=== PATIENT | female | born 1990 | race Two or more races ===

== ENCOUNTER 2017-11-18 11:57 | Emergency (ER) | payer SELFPAY ==
[2017-11-18 12:10] VITALS: BP 140/83; PULSE 83; TEMP 98.6; BMI 25.8
[2017-11-18] MEDS ORDERED: IBUPROFEN 600 MG TABLET (FP) PO ONE ×2 (13:12→13:26)
[2017-11-18] MEDS ORDERED: ALBUTEROL SO4 0.083% IH SOL 2.5 MG/3 ML VIAL.NEB. NEB ONE ×2 (13:13→13:29)
--- NOTE | 2017-11-18 13:13 | PDOC ---
History of Present Illness - General Chief Complaint: Cold Symptoms Stated Complaint: HEADACHE Time Seen by Provider: 11/18/17 12:58 History Source: Patient - History of Present Illness Initial Comments: 11/18/17 13:46 27 year old female c/o URI symptoms, bodyaches, cough, chest congestion for 3 days. Patient reports no improvement in symptoms patient has been taking Tylenol and Advil when necessary. Patient reports no flu shot this year. A past medical history. Past History - Travel Traveled outside of the country in the last 30 days: Yes - Past Medical History Allergies/Adverse Reactions: Allergies Allergy/AdvReac Type Severity Reaction Status Date / Time No Known Allergies Allergy Verified 11/18/17 12:07 Home Medications: Ambulatory Orders Amoxicillin/Potassium Clav [Augmentin 875-125 Tablet] 1 each PO BID #20 tablet 11/18/17 COPD: No - Suicide/Smoking/Psychosocial Hx Smoking History: Never smoked Have you smoked in the past 12 months: No Information on smoking cessation initiated: No Hx Alcohol Use: No Drug/Substance Use Hx: No Substance Use Type: None Review of Systems - Review of Systems Able to Perform ROS?: Yes Is the patient limited Nigerien proficient: No Constitutional: Yes: Fever. No: Symptoms Reported, See HPI, Chills, Diaphoresis , Loss of Appetite, Malaise, Night Sweats, Weakness, Weight Stable, Unintentional Wgt. Loss, Unexplained wgt Loss, Other HEENTM: Yes: Throat Pain. No: Symptoms Reported, See HPI, Eye Pain, Blurred Vision, Tearing, Recent change in vision, Double Vision, Cataracts, Ear Pain, Ocular Prothesis, Ear Discharge, Nose Pain, Nose Congestion, Tinnitus, Nose Bleeding, Hearing Loss, Throat Swelling, Mouth Pain, Dental Problems, Difficulty Swallowing, Mouth Swelling, Other Respiratory: Yes: Cough. No: Symptoms reported, See HPI, Orthopnea, Shortness of Breath, SOB with Exertion, SOB at Rest, Stridor, Wheezing, Productive cough, Hemoptysis, Other Cardiac (ROS): No: Symptoms Reported, See HPI, Chest Pain, Edema, Irregular Heart Rate, Lightheadedness, Palpitations, Syncope, Chest Tightness, Other *Physical Exam - Vital Signs Last Vital Signs Temp Pulse Resp BP Pulse Ox 98.6 F 83 18 140/83 100 11/18/17 12:08 11/18/17 12:08 12/19/17 12:08 11/18/17 12:08 11/18/17 12:08 - Physical Exam General Appearance: Yes: Appropriately Dressed HEENT: positive: Tonsillar Erythema (and edema. no unilateral swelling), Other ( frontal sinus tenderness) Respiratory/Chest: positive: Rhonchi. negative: Chest Tender, Lungs Clear, Normal Breath Sounds, Respiratory Distress, Accessory Muscle Use, Labored Respiration, Rapid RR, Decreased Breath Sounds, Paradoxal Breathing, Crackles, Rales, Stridor, Wheezing, Hyperresonant, Dullness, Plerual Rub, Other Cardiovascular: positive: Regular Rhythm, Regular Rate Gastrointestinal/Abdominal: positive: Normal Bowel Sounds, Soft Musculoskeletal: positive: Normal Inspection Extremity: positive: Normal Capillary Refill, Normal Inspection, Normal Range of Motion Integumentary: positive: Normal Color, Dry, Warm Neurologic: positive: Fully Oriented, Alert, Normal Mood/Affect Progress Note - Progress Note Progress Note: A: URI P: albuterol tylenol *DC/Admit/Observation/Transfer Diagnosis at time of Disposition: URI (upper respiratory infection) Qualifiers: URI type: unspecified URI Qualified Code(s): J06.9 - Acute upper respiratory infection, unspecified Sinusitis Qualifiers: Sinusitis location: frontal Chronicity: acute Recurrence: non-recurrent Qualified Code(s): J01.10 - Acute frontal sinusitis, unspecified - Discharge Dispostion Disposition: HOME - Prescriptions Prescriptions: Amoxicillin/Potassium Clav [Augmentin 875-125 Tablet] 1 each PO BID #20 tablet - Referrals Referrals: Ana Estrella [Primary Care Provider] - - Patient Instructions Printed Discharge Instructions: DI for Common Cold Additional Instructions: drink plenty of fluids. gargle with warm salty water. take tylenol or ibuprofen every 6 hours as needed for pain take augmentin as prescribed. follow up with your doctor as soon as possible. - Post Discharge Activity
== END 2017-11-18 14:56 | disposition home or self-care (01) ==
LOC: JERFT 11:57
PROC: 3E0F7GC Introduction of Other Therapeutic Substance into Respiratory Tract, Via Natural or Artificial Opening (ICD-10-PCS; principal; 2017-11-18)
DX: J06.9 Acute upper respiratory infection, unspecified (principal); J01.10 Acute frontal sinusitis, unspecified
CPT/HCPCS: 87070; 87430; 99281-25

== ENCOUNTER 2021-01-25 14:41 | Emergency (ER) | payer OTHER ==
[2021-01-25 15:33] VITALS: BP 165/67; PULSE 98; TEMP 97.6; BMI 87.1
[2021-01-25] MEDS ORDERED: ACETAMINOPHEN 500 MG TABLET (FP) PO ONE (16:30)
[2021-01-25] MEDS ORDERED: ACETAMINOPHEN 325 MG TABLET (FP) ONE (16:42)
[2021-01-25] MEDS ORDERED: ACETAMINOPHEN 500 MG TABLET (FP) ONE (17:12)
[2021-01-25] MEDS ORDERED: LIDOCAINE 5% TOPICAL PATCH TP ONE (17:26)
[2021-01-25] MEDS ORDERED: LIDOCAINE 5% TOPICAL PATCH ONE (17:28)
[2021-01-25] MEDS ORDERED: LIDOCAINE PATCH REMOVAL MC ONE (22:00)
== END 2021-01-25 17:45 | disposition home or self-care (01) ==
LOC: JER 14:41 → JERFT 14:41
DX: M54.5 Low back pain (principal)
CPT/HCPCS: 99283-25

== ENCOUNTER 2021-08-05 09:00 | Inpatient (IN) | payer OTHER ==
[2021-08-05 10:22] VITALS: BMI 45.6
[2021-08-05] MEDS ORDERED: morphine SULFATE/PF 0.5 MG/ML (2cc Syringe - QUVA) ONE (12:09)
[2021-08-05] MEDS ORDERED: CITRIC ACID/SODIUM CITRATE 30 ML UNIT-DOSE CUP PO ONE (12:09)
[2021-08-05] MEDS ORDERED: ELECTROLYTE-148 SOLN 1,000 ML IV SCH (12:15)
[2021-08-05 14:00] LABS: CORD BASE EXCESS -2.8 mmol/L (0-2); CORD HCO3 24.1 mmHg (20-29); CORD PCO2 49.7 mmHg (30-78); CORD pH 7.304 (7.14-7.44)
[2021-08-05] MEDS ORDERED: OXYTOCIN 20 UNITS in 0.9% NS 20 UNIT/1,000 ML INFUS.BAG IV ONE (14:54)
[2021-08-05] MEDS ORDERED: oxyCODONE HCL 5 MG TABLET PO PRN (15:11)
[2021-08-05] MEDS: OXYTOCIN 20 UNITS in 0.9% NS 20 UNIT/1,000 ML INFUS.BAG IV SCH (16:45)
[2021-08-06] MEDS: SIMETHICONE 80 MG TAB.CHEW (FP) PO PRN ×2 (06:03→19:47)
[2021-08-06] MEDS: IBUPROFEN 600 MG TABLET (FP) PO PRN (06:04)
[2021-08-06 09:07] LABS: BASO % 0.1 % (0-2.0); EOS % 0.4 % (0-4.5); HEMATOCRIT 36.3 % (32.4-45.2); HEMOGLOBIN 11.8 GM/dL (10.7-15.3); LYMPH % 10.7 % (8-40); MCH 27.7 pg (25.7-33.7); MCHC 32.6 g/dl (32.0-36.0); MEAN CELL VOLUME 85.1 fl (80-96); MEAN PLT VOLUME 8.9 fl (7.5-11.1); MONO % 6.3 % (3.8-10.2); NEUT % 82.5 % (42.8-82.8); PLATELET COUNT 180 10^3/uL (134-434); RBC 4.27 M/mm3 (3.60-5.2); RDW 15.8 % (11.6-15.6); WHITE BLOOD COUNT 11.7 K/mm3 (4.0-10.0)
[2021-08-06] MEDS ORDERED: BISACODYL 10 MG SUPP.RECT RC PRN (15:11)
[2021-08-06] MEDS: OXYTOCIN 20 UNITS in 0.9% NS 20 UNIT/1,000 ML INFUS.BAG IV SCH (16:31)
[2021-08-07 11:37] LABS: POC NITRAZINE POS
[2021-08-07] MEDS: SIMETHICONE 80 MG TAB.CHEW (FP) PO PRN (17:14)
[2021-08-07] MEDS: IBUPROFEN 600 MG TABLET (FP) PO PRN (17:14)
[2021-08-08] MEDS: IBUPROFEN 600 MG TABLET (FP) PO PRN ×2 (00:24→09:30)
[2021-08-08] MEDS: SIMETHICONE 80 MG TAB.CHEW (FP) PO PRN (00:25)
[2021-08-08 10:26] VITALS: BP 128/69; PULSE 88; TEMP 98.9
[2021-08-08 11:32] LABS: BASO % 0.4 % (0-2.0); EOS % 1.3 % (0-4.5); HEMATOCRIT 34.5 % (32.4-45.2); HEMOGLOBIN 11.4 GM/dL (10.7-15.3); LYMPH % 12.2 % (8-40); MCH 27.7 pg (25.7-33.7); MEAN CELL VOLUME 83.9 fl (80-96); MEAN PLT VOLUME 8.6 fl (7.5-11.1); NEUT % 80.1 % (42.8-82.8); PLATELET COUNT 207 10^3/uL (134-434); RBC 4.11 M/mm3 (3.60-5.2); RDW 15.7 % (11.6-15.6); WHITE BLOOD COUNT 11.5 K/mm3 (4.0-10.0)
== END 2021-08-08 12:55 | disposition home or self-care (01) | DRG 540 ==
LOC: JLDR 09:00 → J3W 16:45
PROVIDERS: ADMIT Obstetrics & Gynecology Maternal & Fetal Medicine; ATTEND Obstetrics & Gynecology Maternal & Fetal Medicine
PROC: 10D00Z1 Extraction of Products of Conception, Low, Open Approach (ICD-10-PCS; principal; 2021-08-05)
DX: O32.2XX0 Maternal care for transverse and oblique lie, not applicable or unspecified (principal); O99.214 Obesity complicating childbirth; E66.9 Obesity, unspecified; Z3A.38 38 weeks gestation of pregnancy; Z37.0 Single live birth
CPT/HCPCS: 36415; 36600; 80053; 82803; 83986-QW; 85025; 86850; 86900; 86901; C9803; U0003; U0005

== ENCOUNTER 2022-07-29 10:41 | Inpatient (IN) | payer OTHER ==
[2022-07-29] MEDS ORDERED: ONDANSETRON 4 MG/2 ML VIAL IVPUSH ONE ×2 (12:23→19:48)
[2022-07-29] MEDS ORDERED: SODIUM CHLORIDE 0.9% 500 ML INFUS.BAG IV ONE ×2 (12:23)
[2022-07-29] MEDS ORDERED: ONDANSETRON 4 MG/2 ML VIAL ONE ×2 (12:25→20:25)
[2022-07-29 12:54] LABS: BASO % 0.6 % (0-2.0); EOS % 0.7 % (0-4.5); HEMATOCRIT 50.4 % (32.4-45.2); HEMOGLOBIN 16.9 GM/dL (10.7-15.3); MCHC 33.5 g/dl (32.0-36.0); MEAN CELL VOLUME 83.6 fl (80-96); MEAN PLT VOLUME 9.8 fl (7.5-11.1); MONO % 9.1 % (3.8-10.2); NEUT % 75.6 % (42.8-82.8); PLATELET COUNT 228 10^3/uL (134-434); RBC 6.03 M/mm3 (3.60-5.2); RDW 13.1 % (11.6-15.6); WHITE BLOOD COUNT 10.7 K/mm3 (4.0-10.0)
[2022-07-29 13:21] LABS: CHLORIDE 81 mmol/L (98-107); SODIUM 132 mmol/L (136-145)
[2022-07-29 13:25] LABS: BLOOD UREA NITROGEN 35.6 mg/dL (7-18); CALCIUM 10.5 mg/dL (8.5-10.1); CO2 38 mmol/L (21-32); GLUCOSE,RANDOM 108 mg/dL (74-106)
[2022-07-29 13:26] LABS: ALBUMIN 5.1 g/dl (3.4-5.0)
[2022-07-29 13:28] LABS: CREATININE 1.4 mg/dL (0.55-1.3); SGOT/AST 231 U/L (15-37); SGPT/ALT 620 U/L (13-61)
[2022-07-29 13:29] LABS: BILIRUBIN,TOTAL 2.3 mg/dL (0.2-1)
[2022-07-29 13:30] LABS: ALK PHOS 125 U/L (45-117)
[2022-07-29 13:32] LABS: ANION GAP 14 MMOL/L (8-16)
[2022-07-29] MEDS ORDERED: POTASSIUM CHLORIDE 20 MEQ PREMIX IVPB 100 ML IVPB ONE (14:04)
[2022-07-29] MEDS ORDERED: POTASSIUM CHLORIDE TABS 20 MEQ TABLET.ER (FP) PO ONE ×2 (14:06→14:26)
[2022-07-29] MEDS ORDERED: LACTATED RINGERS SOLUTION 1,000 ML/1,000 ML INFUS.BAG IV STA (14:12)
[2022-07-29] MEDS ORDERED: KCL 10 MEQ IVPB 10 MEQ/100 ML INFUS.BAG IVPB ONE ×2 (14:26→15:12)
[2022-07-29] MEDS: KCL 10 MEQ IVPB 10 MEQ/100 ML INFUS.BAG IVPB SCH ×2 (14:39→15:59)
[2022-07-29 15:51] LABS: EPI CELLS 26 /uL (0-25.1); HYALINE CASTS 6 /uL (0-3.1); PH,URINE 6.5 (5.0-8.0); URINE APPEARANCE CLOUDY; URINE BACTERIA 664 /uL (0-1359); URINE BILIRUBIN 2+ (NEGATIVE); URINE COLOR ORANGE; URINE GLUCOSE (UA) NEGATIVE (NEGATIVE); URINE KETONE 4+ (NEGATIVE); URINE LEUK ESTERASE 2+ (NEGATIVE); URINE NITRITE NEGATIVE (NEGATIVE); URINE PROTEIN 2+ (NEGATIVE); URINE RBC 4866 /uL (0-23.9); URINE WBC 295 /uL (0-25.8)
[2022-07-29 15:52] LABS: HCG,QUALITATIVE URINE Negative
[2022-07-29 20:08] LABS: GAMMA GLUTAMYL TRANSPEPTIDASE 395 U/L (5-85)
[2022-07-29 20:10] LABS: BILIRUBIN,DIRECT 1.3 mg/dL (0.0-0.2)
[2022-07-29 21:07] LABS: CHLORIDE 90 mmol/L (98-107); SODIUM 137 mmol/L (136-145)
[2022-07-29 21:11] LABS: BLOOD UREA NITROGEN 24.8 mg/dL (7-18); CO2 32 mmol/L (21-32); GLUCOSE,RANDOM 96 mg/dL (74-106); MAGNESIUM 2.3 mg/dL (1.8-2.4)
[2022-07-29 21:12] LABS: PHOSPHOROUS 2.1 mg/dL (2.5-4.9)
[2022-07-29 21:14] LABS: BILIRUBIN,TOTAL 1.5 mg/dL (0.2-1); SGOT/AST 137 U/L (15-37); SGPT/ALT 436 U/L (13-61)
[2022-07-29 21:51] LABS: ALBUMIN 3.8 g/dl (3.4-5.0); ALK PHOS 86 U/L (45-117); ANION GAP 15 MMOL/L (8-16); TOT PROT 6.6 g/dl (6.4-8.2)
[2022-07-29] MEDS ORDERED: TRIMETHOBENZAMIDE HCL 200MG/2ML INJ IM PRN (23:23)
[2022-07-30 00:10] VITALS: BMI 34.6
[2022-07-30] MEDS: DEXTROSE 5%-NORMAL SALINE 1,000 ML IV SCH ×3 (00:27→21:52)
[2022-07-30] MEDS: PIPERACILLIN/TAZOB 3.375 GM 3.375 GM in DEXTROSE 5%-WATER - 50 ML IVPB SCH ×4 (00:27→16:29)
[2022-07-30] MEDS: KCL 10 MEQ IVPB 10 MEQ/100 ML INFUS.BAG IVPB SCH ×9 (00:30→22:33)
[2022-07-30] MEDS: HEPARIN NA (PORCINE) 5,000 UNITS/ML 1ML VIAL SQ SCH ×4 (00:37→21:49)
[2022-07-30 08:34] LABS: COCAINE, UR NEGATIVE (NEGATIVE); METHADONE, UR NEGATIVE (NEGATIVE); OPIATES, URI NEGATIVE (NEGATIVE)
[2022-07-30 08:35] LABS: PHENCYCLIDINE,URINE NEGATIVE (NEGATIVE)
[2022-07-30 08:43] LABS: URINE AMPHETAMINES NEGATIVE (NEGATIVE); URINE BARBITURATES NEGATIVE (NEGATIVE); URINE BENZODIAZEPINES NEGATIVE (NEGATIVE)
[2022-07-30 09:33] LABS: BASO % 0.5 % (0-2.0); EOS % 1.3 % (0-4.5); HEMATOCRIT 40.7 % (32.4-45.2); LYMPH % 18.4 % (8-40); MCH 27.2 pg (25.7-33.7); MCHC 32.1 g/dl (32.0-36.0); MEAN CELL VOLUME 84.8 fl (80-96); MEAN PLT VOLUME 10.4 fl (7.5-11.1); MONO % 9.2 % (3.8-10.2); NEUT % 70.6 % (42.8-82.8); PLATELET COUNT 137 10^3/uL (134-434); RBC 4.79 M/mm3 (3.60-5.2); RDW 13.1 % (11.6-15.6); WHITE BLOOD COUNT 7.2 K/mm3 (4.0-10.0)
[2022-07-30 09:42] LABS: CHLORIDE 93 mmol/L (98-107); SODIUM 139 mmol/L (136-145)
[2022-07-30 09:52] LABS: CALCIUM 8.7 mg/dL (8.5-10.1)
[2022-07-30 09:53] LABS: ALBUMIN 3.6 g/dl (3.4-5.0); BLOOD UREA NITROGEN 23.7 mg/dL (7-18); CO2 35 mmol/L (21-32); GLUCOSE,RANDOM 107 mg/dL (74-106); MAGNESIUM 2.7 mg/dL (1.8-2.4)
[2022-07-30 09:55] LABS: CREATININE 1.4 mg/dL (0.55-1.3); PHOSPHOROUS 3.3 mg/dL (2.5-4.9); SGOT/AST 124 U/L (15-37); SGPT/ALT 374 U/L (13-61)
[2022-07-30 09:57] LABS: BILIRUBIN,TOTAL 1.4 mg/dL (0.2-1); TOT PROT 6.3 g/dl (6.4-8.2)
[2022-07-30 09:59] LABS: ALK PHOS 84 U/L (45-117)
[2022-07-30 10:03] LABS: ANION GAP 10 MMOL/L (8-16)
[2022-07-30] MEDS ORDERED: SODIUM CHLORIDE 1,000 ML IV SCH (10:45)
[2022-07-30 13:34] LABS: LIPASE 291 U/L (73-393)
[2022-07-30] MEDS ORDERED: POTASSIUM CHLORIDE TABS 20 MEQ TABLET.ER (FP) PO ONE ×3 (14:27→21:23)
[2022-07-30 19:53] LABS: CHLORIDE 97 mmol/L (98-107); SODIUM 139 mmol/L (136-145)
[2022-07-30 19:54] LABS: CALCIUM 9.1 mg/dL (8.5-10.1)
[2022-07-30 19:55] LABS: BLOOD UREA NITROGEN 24.4 mg/dL (7-18); CO2 33 mmol/L (21-32); GLUCOSE,RANDOM 113 mg/dL (74-106)
[2022-07-30 19:59] LABS: CREATININE 2.4 mg/dL (0.55-1.3)
[2022-07-30 20:00] LABS: ANION GAP 8 MMOL/L (8-16)
[2022-07-30] MEDS ORDERED: PIPERACILLIN/TAZOB 3.375 GM 3.375 GM in DEXTROSE 5%-WATER - 50 ML IVPB SCH (21:00)
[2022-07-31 04:25] LABS: CALCIUM 8.5 mg/dL (8.5-10.1)
[2022-07-31 04:26] LABS: BLOOD UREA NITROGEN 25.1 mg/dL (7-18)
[2022-07-31 04:29] LABS: CREATININE 3.1 mg/dL (0.55-1.3)
[2022-07-31] MEDS: KCL 10 MEQ IVPB 10 MEQ/100 ML INFUS.BAG IVPB SCH ×2 (05:15→06:23)
[2022-07-31] MEDS: HEPARIN NA (PORCINE) 5,000 UNITS/ML 1ML VIAL SQ SCH ×3 (05:16→21:35)
[2022-07-31] MEDS ORDERED: POTASSIUM CHLORIDE TABS 20 MEQ TABLET.ER (FP) PO ONE ×2 (05:29→06:26)
[2022-07-31] MEDS: DEXTROSE 5%-NORMAL SALINE 1,000 ML IV SCH ×3 (08:29→17:21)
[2022-07-31 09:16] LABS: ALBUMIN 3.3 g/dl (3.4-5.0); MAGNESIUM 2.5 mg/dL (1.8-2.4)
[2022-07-31 09:18] LABS: BILIRUBIN,DIRECT 0.4 mg/dL (0.0-0.2)
[2022-07-31 09:19] LABS: PHOSPHOROUS 2.5 mg/dL (2.5-4.9)
[2022-07-31 09:25] LABS: BILIRUBIN,TOTAL 0.9 mg/dL (0.2-1)
[2022-07-31 13:27] LABS: BASO % 0.5 % (0-2.0); EOS % 0.5 % (0-4.5); HEMATOCRIT 40.5 % (32.4-45.2); HEMOGLOBIN 12.9 GM/dL (10.7-15.3); LYMPH % 13.3 % (8-40); MCH 27.3 pg (25.7-33.7); MCHC 31.9 g/dl (32.0-36.0); MEAN CELL VOLUME 85.5 fl (80-96); MEAN PLT VOLUME 10.6 fl (7.5-11.1); MONO % 8.5 % (3.8-10.2); NEUT % 77.2 % (42.8-82.8); PLATELET COUNT 142 10^3/uL (134-434); RBC 4.74 M/mm3 (3.60-5.2); RDW 13.5 % (11.6-15.6); WHITE BLOOD COUNT 6.7 K/mm3 (4.0-10.0)
[2022-07-31 14:33] LABS: ALBUMIN 3.1 g/dl (3.4-5.0); BLOOD UREA NITROGEN 23.3 mg/dL (7-18); CALCIUM 8.6 mg/dL (8.5-10.1); MAGNESIUM 2.4 mg/dL (1.8-2.4)
[2022-07-31 14:36] LABS: CREATININE 3.3 mg/dL (0.55-1.3); PHOSPHOROUS 2.2 mg/dL (2.5-4.9)
[2022-07-31 14:37] LABS: TOT PROT 5.9 g/dl (6.4-8.2)
[2022-07-31 14:38] LABS: BILIRUBIN,TOTAL 0.8 mg/dL (0.2-1)
[2022-07-31 15:24] VITALS: PULSE 84
[2022-07-31 22:12] VITALS: RESP 20
[2022-07-31 22:14] VITALS: BP 138/85; TEMP 98.2
== END 2022-07-31 22:30 | disposition short-term general hospital (02) | DRG 252 ==
LOC: JER 10:41 → JERBED 18:52 → J7W 23:51
PROVIDERS: ADMIT Internal Medicine; ATTEND Internal Medicine
DX: K95.89 Other complications of other bariatric procedure (principal); R11.2 Nausea with vomiting, unspecified; E87.6 Hypokalemia; E87.1 Hypo-osmolality and hyponatremia; N17.9 Acute kidney failure, unspecified; E86.0 Dehydration; Y84.8 Other medical procedures as the cause of abnormal reaction of the patient, or of later complication, without mention of misadventure at the time of the procedure; E66.01 Morbid (severe) obesity due to excess calories; R79.89 Other specified abnormal findings of blood chemistry; D72.829 Elevated white blood cell count, unspecified; Z68.35 Body mass index [BMI] 35.0-35.9, adult; R42 Dizziness and giddiness
CPT/HCPCS: 36415; 71046-TC-FY; 74177-TC; 74181-TC; 76700-TC; 80048; 80053; 80076; 80307; 81003; 82248; 82550; 82553; 82977; 83036; 83690; 83735; 84100; 84703; 85025; 86705; 86707; 86708; 87086; 87350; 87517; 87522; 93005; 93010; 99285-25; C9803-CS; J1644; U0003; U0005